=== PATIENT | female | born 1990 | race Caucasian/White ===

== ENCOUNTER 2021-04-05 07:55 | Emergency (ER) | payer OTHER ==
[~2021-04-05] VITALS: Ht 162.6 cm; Wt 77.1 kg
[~2021-04-05 07:55] MED LIST: PRENATAL VITS; TYLENOL
[2021-04-05 08:11] VITALS: BP 146/84
--- NOTE | 2021-04-05 08:11 | NUR ---
PT BIBA AND TAKEN TO BED 7
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
--- NOTE | 2021-04-05 08:51 | NUR ---
DR ARRIOLA AT BEDSIDE.
[2021-04-05] MEDS ORDERED: ACETAMINOPHEN EXTRA STRENGTH 500 MG TAB PO ONE (08:55)
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
--- NOTE | 2021-04-05 09:36 | NUR ---
[employer] AT BEDSIDE.
--- NOTE | 2021-04-05 09:41 | NUR ---
PT TO X-RAY VIA [employer].
--- NOTE | 2021-04-05 10:11 | NUR ---
PT BACK FROM X-RAY.
[2021-04-05 10:51] LABS: BARBITURATE, URINE NEGATIVE ng/ml (NEG <=200); BENZODIAZEPINE, URINE NEGATIVE ng/mL (NEG <=200); CANNABINOID, URINE NEGATIVE ng/mL (NEG <=50); COCAINE, URINE NEGATIVE ng/mL (NEG <=300); OPIATE, URINE NEGATIVE ng/mL (NEG <=2000); PHENCYCLIDINE SCREEN,URINE NEGATIVE ng/mL (NEG <=25)
[2021-04-05] MEDS ORDERED: ACET-10509 PO (10:58)
[2021-04-05 11:04] VITALS: BP 136/90
--- NOTE | 2021-04-05 11:05 | NUR ---
Patient discharged with v/s stable. Written and verbal after care instructions given and explained. Patient alert, oriented and verbalized understanding of instructions. Ambulatory with steady gait. All questions addressed prior to discharge. ID band removed. Patient advised to follow up with PMD. Rx of ACETAMINOPHEN TAB given. Opportunity to ask questions provided and answered.
--- NOTE | 2021-04-05 11:06 | NUR ---
Chart checked and completed. The patient's care was reviewed and supervised by Rosalia Guadarrama RN.
== END 2021-04-05 11:04 | disposition home or self-care (01) ==
LOC: MED 07:55
DX: S80.01XA Contusion of right knee, initial encounter (principal); S80.02XA Contusion of left knee, initial encounter; I10 Essential (primary) hypertension; Z79.899 Other long term (current) drug therapy; Z90.710 Acquired absence of both cervix and uterus; Z88.0 Allergy status to penicillin; Z98.890 Other specified postprocedural states; V89.2XXA Person injured in unspecified motor-vehicle accident, traffic, initial encounter; Y93.89 Activity, other specified; Y92.89 Other specified places as the place of occurrence of the external cause; Y99.8 Other external cause status
CPT/HCPCS: 71046; 73564; 80305; 81025; 99284